=== PATIENT | female | born 1995 | race Caucasian/White ===

== ENCOUNTER 2019-01-07 19:15 | Outpatient (CLI) | payer OTHER ==
[2019-01-07 19:56] LABS: APPEARANCE,URINE CLEAR; BILIRUBIN,URINE NEGATIVE (NEGATIVE); COLOR,URINE YELLOW; GLUCOSE, URINE NEGATIVE (NEGATIVE); KETONES,URINE NEGATIVE (NEGATIVE); LEUKOCYTE ESTERASE,URINE NEGATIVE (NEGATIVE); NITRITE,URINE NEGATIVE (NEGATIVE); PROTEIN,URINE NEGATIVE (NEGATIVE); URINE SPECIFIC GRAVITY 1.012; UROBILINOGEN,URINE NEGATIVE mg/dL (<2.0)
[2019-01-07 20:12] LABS: URINE AMPHETAMINES SCREEN NEGATIVE; URINE BARBITURATES SCREEN NEGATIVE; URINE BENZODIAZEPINES SCREEN NEGATIVE; URINE COCAINE SCREEN NEGATIVE; URINE MARIJUANA (THC) SCREEN NEGATIVE; URINE METHADONE SCREEN NEGATIVE; URINE PHENCYCLIDINE SCREEN NEGATIVE
[2019-01-07] MEDS ORDERED: HYDROXYZINE PAMOATE 50 MG CAPSULE ONE (20:47)
[2019-01-07] MEDS ORDERED: HYDROXYZINE PAMOATE 50 MG CAPSULE PO ONE (21:00)
--- NOTE | 2019-01-07 21:25 | Non Stress Test Report ---
Non Stress Test Datetime Report Generated by CPN: 01/07/2019 21:25 DEMOGRAPHIC EGA NST: 40.5 INDICATION Indication for Study: Ordered by Provider; Other Indication for Study (NST) Other: LC URINE RESULTS Urine Protein, NST: Negative Urine Ketones - NST: Negative Urine Glucose - NST: Negative Urine Blood - NST: Negative MONITORING Monitor Explained: Monitor Explained; Test Explained; Patient Verbalized Understanding Time on Monitor: 01/07/2019 19:41 Time off Monitor: 01/07/2019 20:14 NST Duration: 33 NST INTERVENTIONS NST Interventions: PO Hydration Physician Notified NST: Dr. Ayers BABY A: [id number] BABY A Movement : Present Contraction Frequency : 1-2.5 FHR Baseline : 130 Accelerations : 15X15 Decelerations : None Variability : Moderate 6-25bpm NST Review: Meets Criteria for Reactive NST NST Review and Verified By : Cristofer Osborne RNT Results: Reactive NST REPORT Report Trigger: Send Report
== END 2019-01-07 21:11 | disposition home or self-care (01) ==
LOC: LC 19:15
PROVIDERS: ATTEND Obstetrics & Gynecology
PROC: 4A1HXCZ Monitoring of Products of Conception, Cardiac Rate, External Approach (ICD-10-PCS; principal; 2019-01-07)
DX: Z34.93 Encounter for supervision of normal pregnancy, unspecified, third trimester (principal); Z3A.40 40 weeks gestation of pregnancy
CPT/HCPCS: 59025; 80307; 81005

== ENCOUNTER 2019-01-07 23:10 | Inpatient (IN) | payer OTHER ==
[2019-01-07] MEDS ORDERED: MISOPROSTOL 0.2 MG TABLET ONE (23:49)
[2019-01-07] MEDS ORDERED: PHENYLEPHRINE HCL INJ/PF 10 MG/1 ML SDV ONE (23:49)
[2019-01-07] MEDS ORDERED: OXYTOCIN 10 UNIT/ML VIAL ONE (23:49)
[2019-01-07] MEDS ORDERED: EPHEDRINE SULFATE INJ 50 MG/1 ML AMPULE ONE (23:50)
[2019-01-07] MEDS ORDERED: FENTANYL/BUPIVACAINE/NS/PF 300 MCG/150 ML RTUINJ EPI ONE (23:50)
[2019-01-07] MEDS ORDERED: FENTANYL CITRATE INJ/PF 100 MCG/2 ML AMPUL ONE (23:50)
[2019-01-07] MEDS ORDERED: BUPIVACAINE HCL 0.25 % INJ/PF (2.5 MG/1 ML) 30 ML VIAL ONE (23:50)
[2019-01-07] MEDS ORDERED: OXYTOCIN/NORMAL SALINE 20 UNIT/1,000 ML RTUINJ ONE (23:50)
[2019-01-07] MEDS ORDERED: LIDOCAINE 1% INJ-PF (10 MG/ML) 30 ML SDV ONE (23:50)
[2019-01-07 23:56] LABS: ABSOLUTE EOSINOPHILS # (AUTO) 0.1 10^3/uL (0.0-0.6); ABSOLUTE LYMPHOCYTES (AUTO) 2.1 10^3/uL (0.5-4.7); ABSOLUTE MONOCYTES (AUTO) 1.2 10^3/uL (0.1-1.4); ABSOLUTE NEUT (AUTO) 12.3 10^3/uL (1.7-8.2); BASOPHILS % (AUTO) 0.2 % (0-2); EOSINOPHILS % (AUTO) 0.5 % (0-6); HEMOGLOBIN 11.8 g/dL (12.0-15.5); LYMPHOCYTES % (AUTO) 13.4 % (13-45); MEAN CORPUSCULAR HEMOGLOBIN 27.7 pg (27.0-33.4); MEAN CORPUSCULAR HGB CONC 32.9 g/dL (32.0-36.0); MEAN CORPUSCULAR VOLUME 84 fl (80-97); MONOCYTES % (AUTO) 7.6 % (3-13); PLATELET COUNT 136 10^3/uL (150-450); RED BLOOD COUNT 4.27 10^6/uL (3.72-5.28); RED CELL DISTRIBUTION WIDTH 14.7 % (11.5-14.0); SEGMENTED NEUTROPHILS % (AUTO) 78.3 % (42-78); TOTAL CELLS COUNTED % (AUTO) 100 %; WHITE BLOOD COUNT 15.7 10^3/uL (4.0-10.5)
--- NOTE | 2019-01-08 01:50 | Admission Physical ---
Datetime Report Generated by CPN: 01/08/2019 01:49 CURRENT ADMISSION Chief Complaint: Uterine Contractions Indication for Induction: Not Applicable Admit Impression : Term, Intrauterine ; Active Labor Admit Plan: Admit to Unit; Initiate Labor Protocol ALLERGIES Medication Allergies: No Medication Allergies: No Known Allergies (01/07/2019) Latex: No Latex Allergies OBSTETRICAL HISTORY EDC: 01/02/2019 00:00 : 1 Para: 0 Livin Gestational Diabetes: No Rh Sensitization: No Incompetent Cervix: No FREDERIC: No Infertility: No ART Treatment: No Uterine Anomaly: No IUGR: No Hx Previous C/S: No Macrosomia: No Hx Loss/Stillborn: No PIH: No Hx : No Placenta Previa/Abruption: No Depression/PP Depression: No PTL/PROM: No Post Hemorrhage: No Current Procedures: None Obstetrical History Comments: g1 - current - LGSIL 06/21/18 SEE RECORDS Alcohol: No Marijuana : No Cocaine: No Other Illicit Drugs: No Cigarettes: Never Smoker. [id number] MEDICAL HISTORY Diabetes: No Blood Transfusion: No Pulmonary Disease (Asthma, TB): Yes Breast Disease: No Hypertension: No Radio Interference Investigator Surgery: No Heart Disease: No Hosp/Surgery: No Autoimmune Disorder: No Anesthetic Complications: No Kidney Disease: No Abnormal Pap Smear: Yes Neuro/Epilepsy: No Psychiatric Disorders: No Other Medical Diseases: No Hepatitis/Liver Disease: No Significant Family History: No Varicosities/Phlebitis: No Trauma/Violence : No Thyroid Dysfunction: No Medical History Comments: ashtma- since 9 abd normal- will f/u PP INFECTIOUS HISTORY Gonorrhea: No Genital Herpes: No Chlamydia: No Tuberculosis: No Syphilis: No Hepatitis: No HIV/AIDS Exposure: No Rash or Viral Illness: No HPV: No PHYSICAL EXAM General: Normal HEENT: Normal Neurologic: Normal Thyroid: Normal Heart: Normal Lungs: Normal Breast: Deferred Back: Normal Abdomen: Normal Genitourinary Exam: Normal Extremities: Normal DTRs: Normal Pelvic Type: Adequate Vital Signs: Reviewed VAGINAL EXAM Dilatation: 8 Effacement: 100 Station: 0 MEMBRANES Pooling: Positive Membranes: Ruptured Amniotic Fluid Color: Meconium, Heavy FETUS A EGA: 40.6 Monitoring: External US FHR- Baseline: 130 Variability: Moderate 6-25bpm FHR Category: Category I Presentation: Vertex Admit Comment: Admit for labor. PLANS FOR LABOR AND DELIVERY Labor and Delivery: None Pain Management: Epidural Feeding Preference: Breast Benefit of Breast Feed Discussed: Yes Circumcision: Yes INFORMED CONSENT Signature: with User ID: [email or web address]
[2019-01-08] MEDS ORDERED: ACETAMINOPHEN 650 MG SUPP.RECT PR PRN (02:40)
[2019-01-08] MEDS ORDERED: GLYCERIN/WITCH HAZEL LEAF 1 EACH MED..WIPE TP PRN (02:40)
[2019-01-08] MEDS ORDERED: OXYTOCIN/NORMAL SALINE 20 UNIT/1,000 ML RTUINJ IV PRN (02:40)
[2019-01-08] MEDS ORDERED: PROMETHAZINE HCL INJ 25 MG/1 ML VIAL IV PRN (02:40)
[2019-01-08] MEDS ORDERED: DIPH/PERTUSS(ACELL)/TETANUS VAC/PF 0.5 ML SYR (>=10YO) IM PRN (02:40)
[2019-01-08] MEDS ORDERED: PSEUDOEPHEDRINE HCL 30 MG TABLET PO PRN (02:40)
[2019-01-08] MEDS ORDERED: ZOLPIDEM TARTRATE 5 MG TABLET PO PRN (02:40)
[2019-01-08] MEDS ORDERED: PROMETHAZINE HCL 25 MG TABLET PO PRN (02:40)
[2019-01-08] MEDS ORDERED: MAGNESIUM HYDROXIDE SUSP 30 ML UDCUP PO PRN (02:40)
[2019-01-08] MEDS ORDERED: DIPHENHYDRAMINE HCL 25 MG CAPSULE PO PRN (02:40)
[2019-01-08] MEDS ORDERED: BENZOCAINE/MENTHOL AEROSOL SPRAY 56 ML TOP PRN (02:40)
[2019-01-08] MEDS ORDERED: NA PHOS,M-B/NA PHOS,DI-BA (ADULT) 133 ML ENEMA PR PRN (02:40)
[2019-01-08] MEDS ORDERED: DIBUCAINE 1% OINTMENT 56 GM TP PRN (02:40)
[2019-01-08] MEDS ORDERED: ACETAMINOPHEN WITH CODEINE #3 TABLET PO PRN ×2 (02:40)
[2019-01-08] MEDS ORDERED: PROMETHAZINE HCL 25 MG SUPP.RECT PR PRN (02:40)
[2019-01-08] MEDS ORDERED: MEASLES,MUMPS&RUBELLA VACC/PF 0.5 ML VIAL SUBCUT PRN (02:40)
--- NOTE | 2019-01-08 03:51 | Delivery Summary ---
Del Sum A-C Datetime Report Generated by CPN: 01/08/2019 03:50 DELIVERY PERSONNEL DELIVERY PERSONNEL: [id number] Delivery Doctor:: Chetan Ayers MD Labor and Delivery Nurse:: Chelsey Osborne RN Labor and Delivery Nurse:: Jessica Freitas RN Nursery Nurse:: Luisa Schmidt RN Transport Assistant/PUBLIC ADDRESS TECHNICIAN: Eli Green, ST MATERNAL INFORMATION Delivery Anesthesia: Epidural Medications After Delivery: Pitocin Bolus-Please Comment Meds After Delivery Comment: Pitocin 20 units/1000 mL NS bolus after placenta Estimated Blood Loss (ml): 250 Maternal Complications: None LABOR SUMMARY EDC: 01/02/2019 00:00 No. Babies in Womb: 1 Attempted: No Labor Anesthesia: Epidural LABOR INFORMATION Reason for Induction: Not Applicable Onset of Labor: 01/07/2019 23:15 Complete Dilatation: 01/08/2019 02:00 Oxytocin: N/A Group B Beta Strep: negative Antibiotics # of Doses: 0 Antibiotics Time of Last Dose: n/a Steroids Given: None Reason Steroids Not Administered: Not Applicable MEMBRANES Membranes Rupture Method: Spontaneous Rupture of Membranes: 01/08/2019 01:14 Length of Rupture (hr): 1.08 Amniotic Fluid Color: Heavy Meconium Amniotic Fluid Amount: Moderate Amniotic Fluid Odor: Normal STAGES OF LABOR Stage 1 hr: 2 Stage 1 min: 45 Stage 2 hr: 0 Stage 2 min: 19 Stage 3 hr: 0 Stage 3 min: 4 Total Time in Labor hr: 3 Total Time in Labor min: 8 VAGINAL DELIVERY Episiotomy: None Laceration #1: Perineal; Periurethral Laceration Extension #1: Second Degree Laceration #2: Perineal Laceration Extension #2: Second Degree Laceration #3: None Laceration Extension #3: N/A Laceration Repair: Yes (Annotations: Data stored by CPN on behalf of user) Laceration Repair Note: Periurethral laceration repaired with 3-0 chromic and perineal laceration repaired with 3-0 chromic suture. Sponge Count Correct: N/A; Vaginal Sweep Performed Sharps Count Correct: N/A CSECTION DELIVERY Primary Indication: N/A Secondary Indication: N/A CSection Incidence: N/A Labor: N/A Elective: N/A CSection Incision: N/A BABY A INFORMATION Delivery Date/Time: 01/08/2019 02:19 Method of Delivery: Vaginal Born in Route : No : N/A Forceps: N/A Vacuum Extraction: N/A Shoulder Dystocia : No PRESENTATION/POSITION BABY A Presentation: Cephalic Cephalic Presentation: Vertex Vertex Position: Right Occipital Anterior Breech Presentation: N/A PLACENTA INFORMATION BABY A Placenta Delivery Time : 01/08/2019 02:23 Placenta Method of Delivery: Spontaneous Placenta Status: Delivered SCORES BABY A Heart Rate 1 min: >100 bpm Resp Effort 1 min: Good Cry Reflex Irritability 1 min: Cough or Sneeze or Pulls Away Muscle Tone 1 min: Active Motion Color 1 min: Body [place], Extremities Blue Resuscitation Effort 1 min: Tactile Stimulation SCORE 1 MIN: 9 Heart Rate 5 min: >100 bpm Resp Effort 5 min: Good Cry Reflex Irritability 5 min: Cough or Sneeze or Pulls Away Muscle Tone 5 min: Active Motion Color 5 min: Body [place], Extremities Blue Resuscitation Effort 5 min: Tactile Stimulation SCORE 5 MIN: 9 INFORMATION BABY A Gestational Age at Delivery: 40.6 Gestational Status: Full Term- 39- 40.6 Weeks Outcome : Liveborn Condition : Stable Infant Sex: Male IDENTIFICATION BABY A Verification Date/Time: 01/08/2019 03:06 ID Band Number: [id number] Mother's Name Verified: Yes Infant RN Verifying : B. Ring _ K. Rafael WEIGHT/LENGTH BABY A Infant Birthweight (gm): 3483 Infant Weight (lb): 7 Infant Weight (oz): 11 Length (in): 19.75 Infant Length (cm): 50.17 CORD INFORMATION BABY A No. Cord Vessels: 3 Nuchal Cord : N/A Cord Blood Taken: Yes-For Eval (Mom's Blood Type - or O+) Suction: Mouth; Nose; Pharynx ASSESSMENT BABY A Complications: Multiple Late Decels; Meconium Physical Findings at Delivery: Within Normal Limits Physical Findings- Other: see initial nursery assessment Infant Respirations: Appears Normal Wet End Helper/ALS Called : No Infant Care By: L. Schmidt, RN Transferred To: Remains with Mother BABY B INFORMATION : N/A SIGNATURES Signature: with User ID: [email or web address]
[2019-01-08] MEDS ORDERED: IBUPROFEN 800 MG TABLET ONE (04:12)
[2019-01-08] MEDS: FAMOTIDINE 20 MG TABLET PO SCH ×2 (09:55→22:05)
[2019-01-08] MEDS: SENNOSIDES/DOCUSATE 8.6-50 MG 1 EACH TABLET PO SCH (09:55)
[2019-01-08] MEDS: FERROUS SULFATE 325 MG TABLET PO SCH ×2 (09:55→17:36)
[2019-01-08] MEDS: DOCUSATE SODIUM 100 MG CAPSULE PO SCH ×2 (09:55→17:36)
[2019-01-08] MEDS: PRENATAL VITAMIN W DHA CAPSULE PO SCH (09:55)
[2019-01-08] MEDS: IBUPROFEN 800 MG TABLET PO SCH ×2 (14:15→22:05)
[2019-01-09] MEDS: IBUPROFEN 800 MG TABLET PO SCH ×3 (05:03→15:04)
[2019-01-09 07:46] LABS: HEMATOCRIT 32.5 % (36.0-47.0); HEMOGLOBIN 10.8 g/dL (12.0-15.5); MEAN CORPUSCULAR HGB CONC 33.1 g/dL (32.0-36.0); MEAN CORPUSCULAR VOLUME 85 fl (80-97); PLATELET COUNT 150 10^3/uL (150-450); RED BLOOD COUNT 3.84 10^6/uL (3.72-5.28); RED CELL DISTRIBUTION WIDTH 14.9 % (11.5-14.0); WHITE BLOOD COUNT 11.2 10^3/uL (4.0-10.5)
[2019-01-09 08:33] VITALS: BP 109/68
--- NOTE | 2019-01-09 10:24 | PDOC DISCHARGE SUMMARY ---
Final Diagnosis Discharge Date: 01/09/19 - PP day #1, pt desires to go home this evening. Doing well, , O+, rubella Non-immune Discharge Data - Discharge Medication Prescriptions: Ibuprofen [Motrin 800 mg Tablet] 800 mg PO Q8 #60 tablet Home Medications: Fluticasone/Salmeterol [Advair 100-50 Diskus 14 Dose/Diskus] 2 puff PO PRN PRN 01/07/19 Vit,Calc76/Iron/Folic [Pnv 29-1 Tablet] 1 tab PO DAILY 01/07/19 Ibuprofen [Motrin 800 mg Tablet] 800 mg PO Q8 #60 tablet 01/09/19 Reason(s) for Admission: Onset of Labor Procedures: Ultrasound Intrapartum Procedure(s): Spontaneous Vaginal Delivery Complication(s): Laceration-Perineal Laceration-Degree: 2nd - Diagnosis Test Laboratory: Temp Pulse Resp BP Pulse Ox 97.4 F 84 16 109/68 100 01/09/19 08:05 01/09/19 08:05 01/09/19 08:05 01/09/19 08:05 01/09/19 08:05 01/07/19 01/09/19 23:47 07:15 RBC 4.27 3.84 Hgb 11.8 L 10.8 L Hct 36.0 32.5 L - Discharge information/Instructions Discharge Activity: Activity As Tolerated, No Lifting Over 10 Pounds, Pelvic Rest Discharge Diet: As Tolerated, Regular Disposition: HOME, SELF-CARE Follow up with: [facility] in: Weeks
[2019-01-09] MEDS: FAMOTIDINE 20 MG TABLET PO SCH (10:28)
[2019-01-09] MEDS: FERROUS SULFATE 325 MG TABLET PO SCH (10:28)
[2019-01-09] MEDS: SENNOSIDES/DOCUSATE 8.6-50 MG 1 EACH TABLET PO SCH (10:28)
[2019-01-09] MEDS: DOCUSATE SODIUM 100 MG CAPSULE PO SCH (10:28)
[2019-01-09] MEDS: PRENATAL VITAMIN W DHA CAPSULE PO SCH (10:28)
== END 2019-01-09 17:30 | disposition home or self-care (01) | DRG 806 ==
LOC: LC 23:10 → LR 23:29 → 2S 01-08 09:25
PROVIDERS: ADMIT Obstetrics & Gynecology; ATTEND Obstetrics & Gynecology
PROC: 10E0XZZ Delivery of Products of Conception, External Approach (ICD-10-PCS; principal; 2019-01-08)
PROC: 0KQM0ZZ Repair Perineum Muscle, Open Approach (ICD-10-PCS; 2019-01-08)
PROC: 0UQMXZZ Repair Vulva, External Approach (ICD-10-PCS; 2019-01-08)
DX: O76 Abnormality in fetal heart rate and rhythm complicating labor and delivery (principal); O75.2 Pyrexia during labor, not elsewhere classified; Z37.0 Single live birth; O99.52 Diseases of the respiratory system complicating childbirth; J45.909 Unspecified asthma, uncomplicated; O77.0 Labor and delivery complicated by meconium in amniotic fluid; O70.1 Second degree perineal laceration during delivery; O71.82 Other specified trauma to perineum and vulva; Z3A.40 40 weeks gestation of pregnancy
CPT/HCPCS: 36415; 85025; 85027; 86592; 86850; 86900; 86901; J2370; J2590; J3010; J3490

== ENCOUNTER 2020-02-19 22:28 | Emergency (ER) | payer OTHER ==
[2020-02-19] MEDS ORDERED: ALBUTEROL SULFATE 0.083% NEB 2.5 MG/3 ML AMPUL NEB ONE (23:11)
[2020-02-19] MEDS ORDERED: METHYLPREDNISOLONE INJ 125 MG/2 ML SDV IM ONE (23:11)
--- NOTE | 2020-02-19 23:17 | ER Document Report ---
ED Respiratory Problem - General Stated Complaint: POSSIBLE ASTHMA ATTACK,OUT OF MEDICINE Time Seen by Provider: 02/19/20 23:07 Primary Care Provider: ISSAC GEORGE MD [Primary Care Provider] - Follow up as needed Mode of Arrival: Ambulatory Information source: Patient, Friend Notes: Patient is a 24-year-old female comes emergency room complaining of an acute asthmatic attack. Patient states it started approximately 2 days ago because they are in process of moving and getting in dust and it sets off her asthma. She has attempted to use her inhaler which is albuterol as well as a nebulizer treatment around noon time today without any relief. Patient states she is wheezing but having a little tightness with this. TRAVEL OUTSIDE OF THE [place] IN LAST 30 DAYS: No - HPI Patient complains to provider of: Asthma Onset: Other - 2 days Duration: Worse/persistent Initiating Event: Allergy, Exposure to dust Quality of pain: No pain Severity: Moderate Pain Level: 3 Context: Hx asthma Cough: Nonproductive At home treatment: Bronchodilators Associated symptoms: Wheezing Similar symptoms previously: Yes Recently seen / treated by doctor: No - Related Data Allergies/Adverse Reactions: No Known Allergies Allergy (Unverified 01/07/19 19:30) Home Medications: Albuterol Past Medical History - General Information source: Patient - Social History Smoking Status: Never Smoker Chew tobacco use (# tins/day): No Frequency of alcohol use: None Drug Abuse: None Family History: Reviewed & Not Pertinent Review of Systems - Review of Systems Constitutional: No symptoms reported EENT: No symptoms reported Cardiovascular: No symptoms reported Respiratory: See HPI, Cough, Wheezing Gastrointestinal: No symptoms reported Genitourinary: No symptoms reported Female Genitourinary: No symptoms reported Musculoskeletal: No symptoms reported Skin: No symptoms reported Hematologic/Lymphatic: No symptoms reported Neurological/Psychological: No symptoms reported -: Yes All other systems reviewed and negative Physical Exam - Vital signs Vitals: Temp Pulse Resp BP Pulse Ox 97.8 F 96 20 131/88 H 96 02/19/20 22:34 02/19/20 22:34 02/19/20 22:34 02/19/20 22:34 02/19/20 22:34 Interpretation: Hypertensive - Notes Notes: PHYSICAL EXAMINATION: GENERAL: Patient is well-nourished well-developed 24-year-old female no apparent distress on exam tonight although she does appear somewhat uncomfortable. HEAD: Atraumatic, normocephalic. EYES: Pupils equal round and reactive to light, extraocular movements intact, conjunctiva are normal. ENT: Examination of the head and upper airway showed nasal mucosa be mildly erythematous and edematous with no rhinorrhea. No frontal or maxillary sinus tenderness to palpation. Bilateral TMs are normal in appearance no bulging or retraction noted. Posterior pharynx shows no drainage and no encroachment upon the uvula and there is minimal erythema and no exudates noted. NECK: Normal range of motion, supple without lymphadenopathy LUNGS: Auscultation patient's lungs show she has bilateral breath sounds breath sounds are decreased throughout she has inspiratory and expiratory wheeze noted but no rhonchi or rales are heard. HEART: Regular rate and rhythm without murmurs ABDOMEN: Soft, nontender, nondistended abdomen. No guarding, no rebound. No masses appreciated. Female : deferred Musculoskeletal: Normal range of motion, no pitting or edema. No cyanosis. NEUROLOGICAL:. Normal speech, normal gait. Normal sensory, motor exams PSYCH: Normal mood, normal affect. SKIN: Warm, Dry, normal turgor, no rashes or lesions noted. Course - Re-evaluation Re-evalutation: 02/20/20 00:07 Patient improved on her neb treatment and Solu-Medrol here in the emergency room., Send her home with Medrol Dosepak and some albuterol nebs. - Vital Signs Vital signs: Temp Pulse Resp BP Pulse Ox 97.8 F 96 20 131/88 H 96 02/19/20 23:05 02/19/20 22:34 02/19/20 22:34 02/19/20 22:34 02/19/20 22:34 Discharge - Discharge Clinical Impression: Asthma attack Qualifiers: Asthma severity: moderate Asthma persistence: persistent Qualified Code(s): J45.41 - Moderate persistent asthma with (acute) exacerbation Condition: Stable Disposition: HOME, SELF-CARE Instructions: Asthma ([facility]), Inhaled Bronchodilators ([facility]) Additional Instructions: Home and rest. Medication prescribed. As we discussed you need to do your albuterol nebulizer every 4-6 hours for the next few days to break this. He also need to stay in a cool environment try to avoid dust as much as possible and not get overheated. Should you have any increasing signs or symptoms or difficulty breathing return to ER for reevaluation. Prescriptions: Methylprednisolone [Medrol Dosepack (4 mg/Tab) 21 Tab/Dosepak] 4 mg PO ASDIR PRN #21 tab.ds.pk PRN Reason: Albuterol Sulfate [Ventolin 0.083% Neb 2.5 mg/3 ml Ampul] 1 vial NEB Q4 #60 vial Forms: Elevated Blood Pressure Referrals: ISSAC GEORGE MD [Primary Care Provider] - Follow up as needed
[2020-02-20 00:28] VITALS: BP 129/87
== END 2020-02-20 01:04 | disposition home or self-care (01) ==
LOC: ER 22:28
DX: J45.41 Moderate persistent asthma with (acute) exacerbation (principal); R05 Cough; Z79.899 Other long term (current) drug therapy
CPT/HCPCS: 94640; 99284; 96372; J2930